=== PATIENT | female | born 1980 | race Hispanic/Latino ===

== ENCOUNTER 2023-06-11 08:11 | Emergency (ER) | payer OTHER ==
[~2023-06-11] VITALS: Ht 165.1 cm; Wt 96.2 kg
[2023-06-11 08:55] LABS: APPEARANCE,URINE CLEAR (CLEAR); BILIRUBIN,URINE NEGATIVE (NEGATIVE); COLOR,URINE YELLOW (YELLOW); GLUCOSE, URINE (UA) NEGATIVE (NEGATIVE); KETONES,URINE NEGATIVE (NEGATIVE); LEUKOCYTE ESTERASE ,URINE SMALL Leu/uL (NEGATIVE); NITRATE,URINE POSITIVE (NEGATIVE); OCCULT BLOOD,URINE LARGE (NEGATIVE); PROTEIN,URINE NEGATIVE (NEGATIVE); UROBILINOGEN,URINE 0.2 mg/dL (0.2-1.0)
[2023-06-11 08:56] LABS: ADD UA MICROSCOPIC YES
[2023-06-11 09:10] LABS: HEMATOCRIT 37.1 % (36-48); MEAN CORPUSCULAR HEMOGLOBIN 28.3 pg (27.0-33.0); MEAN CORPUSCULAR HGB CONC 31.5 g/dL (32.0-36.0); MEAN CORPUSCULAR VOLUME 89.8 fL (79-99); RED BLOOD CELL COUNT(AUTO) 4.13 MIL/uL (4.00-5.50); RED CELL DISTRIBUTION WIDTH 13.4 % (11.0-15.5); WHITE BLOOD COUNT (AUTO) 7.7 K/uL (4.8-10.8)
[2023-06-11 09:13] LABS: CREATININE 0.5 mg/dL (0.5-1.5); POTASSIUM 3.7 mmol/L (3.5-5.1)
[2023-06-11 09:17] LABS: ALBUMIN 3.4 g/dL (3.5-5.0); BILIRUBIN,TOTAL 0.2 mg/dL (0.2-1.0); TOTAL PROTEIN, SERUM 7.8 g/dL (6.0-8.3)
[2023-06-11 09:26] LABS: BACTERIA,URINE Moderate /HPF (None Seen); MUCUS,URINE Moderate LPF (None Seen); SQUAMOUS EPITHELIAL CELL,UR 0-2 /HPF (0-2)
[2023-06-11] MEDS ORDERED: IBUP-2070 PO (12:32)
[2023-06-11] MEDS ORDERED: MACR100 PO (12:32)
[2023-06-11] MEDS ORDERED: ONDA4TAB10 PO (12:32)
[2023-06-11] MEDS: CEFTRIAXONE 1G VIAL IVPB ONE (12:51)
[2023-06-11] MEDS: MAG/ALUM/SIMETH 30 ML UDCUP PO ONE (12:51)
[2023-06-11] MEDS: ONDANSETRON ODT 4MG TAB SL ONE (12:51)
[2023-06-11] MEDS: PANTOPRAZOLE 40 MG TAB DR PO ONE (12:51)
[2023-06-11 12:52] VITALS: BP 141/80; PULSE 82; RESP 16; O2SAT 99
[2023-06-11] MEDS: ACETAMINOPHEN 500 MG TABLET PO ONE (12:52)
== END 2023-06-11 13:37 | disposition home or self-care (01) ==
LOC: EDH 08:11
DX: R07.89 Other chest pain (principal); N39.0 Urinary tract infection, site not specified; R10.13 Epigastric pain; I10 Essential (primary) hypertension; E11.9 Type 2 diabetes mellitus without complications; E78.00 Pure hypercholesterolemia, unspecified; Z79.899 Other long term (current) drug therapy; Z90.49 Acquired absence of other specified parts of digestive tract; Z98.890 Other specified postprocedural states
CPT/HCPCS: 99285; 96374; 71045; 83735; 84484; 80053; 85027; 87077; 87088; 87186; 81001; 36415; 93005; J0696